=== PATIENT | male | born 1940 | race Two or more races ===

== ENCOUNTER 2019-05-18 19:36 | Emergency (ER) | payer MEDICARE, MEDICAID ==
[~2019-05-18] VITALS: Ht 170.2 cm; Wt 81.6 kg
[2019-05-18] MEDS ORDERED: SODIUM BICARBONATE 8.4% INJ 50ML SYRINGE IV ONE (19:43)
[2019-05-18] MEDS ORDERED: EPINEPHrine HCL 1 MG/10 ML SYRG IV ONE (19:43)
[2019-05-18 20:55] VITALS: BP 0/0
== END 2019-05-18 19:44 | disposition expired ==
LOC: EDBD 19:36 → ER 19:42
DX: I46.9 Cardiac arrest, cause unspecified (principal); K92.2 Gastrointestinal hemorrhage, unspecified
CPT/HCPCS: 87804; 92950; 99291; J0171